=== PATIENT | female | born 1940 | race Caucasian/White ===

== ENCOUNTER → 2017-06-28 | Outpatient (CLI) | payer OTHER, MEDICARE ==
[~2017-06-28] MED LIST: CHOL20005 PO; MULT-513 PO
--- NOTE | 2017-06-28 14:55 | MAMMOGRAPHY REPORT ---
BILATERAL DIGITAL SCREENING MAMMOGRAM WITH CAD: 06/28/2017 CLINICAL HISTORY: Routine screening. Patient has no complaints. TECHNIQUE: Bilateral CC and MLO views were obtained. Current study was also evaluated with a Compute r Aided Detection (CAD) system. COMPARISON: Comparison is made to exams dated: 06/24/2016 mammogram, 06/20/2015 mammogram, 05/30/2014 mammogram, 04/26/2013 mammogram, 04/21/2012 mammogram, and 04/20/2011 mammogram - [facility]. BREAST COMPOSITION: The tissue of both breasts is heterogeneously dense, which may obscure small mas ses. FINDINGS: There is a 9 mm focal asymmetry in the upper inner posterior left breast, for which additi onal spot compression tomosynthesis views and possible ultrasound are recommended. No other suspicious mass, architectural distortion or cluster of microcalcifications is seen bilatera lly. IMPRESSION: ACR BI-RADS CATEGORY 0: INCOMPLETE EVALUATION: NEED ADDITIONAL IMAGING EVALUATION The 9 mm focal asymmetry in the upper inner left breast needs additional evaluation. The patient will be called to schedule an appointment. Approximately 10% of breast cancers are not detected with mammography. A negative mammographic report should not delay biopsy if a clinically suggestive mass is present. Bethany Meza M.D. ay/:06/28/2017 12:46:03 Certified Indoor Environmentalist: Radha RODRIGUEZ(R)(M), [facility] letter sent: Addl Imaging 0 BI-RADS Code: ACR BI-RADS Category 0: Incomplete Evaluation: Need Additional Imaging Evaluation
== END | disposition home or self-care (01) ==
LOC: C.MAMM 11:05
PROVIDERS: ATTEND Obstetrics & Gynecology
DX: Z12.31 Encounter for screening mammogram for malignant neoplasm of breast (principal); N64.89 Other specified disorders of breast

== ENCOUNTER → 2017-07-08 | Outpatient (CLI) | payer OTHER, MEDICARE ==
--- NOTE | 2017-07-08 14:53 | MAMMOGRAPHY REPORT ---
UNILATERAL LEFT DIGITAL DIAGNOSTIC MAMMOGRAM TOMOSYNTHESIS AND TARGETED LEFT ULTRASOUND: 07/08/2017 CLINICAL HISTORY: Callback from screening mammogram for left breast asymmetry. TECHNIQUE: Breast tomosynthesis in addition to standard 2D mammography was performed. Spot compress ion left CC and MLO 2-D and tomosynthesis images were obtained. COMPARISON: Comparison is made to exams dated: 06/28/2017 mammogram, 06/24/2016 mammogram, 5 mammogram, 05/30/2014 mammogram, 04/26/2013 mammogram, and 04/21/2012 mammogram - [facility]. BREAST COMPOSITION: The tissue of the left breast is heterogeneously dense, which may obscure small masses. FINDINGS: The previously described focal asymmetry in the left upper inner quadrant effaces to a base line appearance on the additional spot compression views, with appearance of this region similar to m joãole prior exams including the 2013, 2011, and 2008 exams. No suspicious mass or architectural di stortion is noted on the additional views. Targeted ultrasound was performed of the left upper inner quadrant at approximately 10 to 11:00 in th e region of the mammographic asymmetry. No suspicious masses or other suspicious sonographic abnorma lities are evident. No sonographic correlate for the mammographic asymmetry is seen. IMPRESSION: ACR BI-RADS CATEGORY 2: BENIGN, TARGETED ULTRASOUND ACR BI-RADS CATEGORY 2: BENIGN The left breast asymmetry effaces to a baseline appearance on the additional images, with no correspo nding suspicious sonographic abnormality evident. Findings are benign and likely represent normal fi broglandular tissue. There is no mammographic or targeted sonographic evidence of malignancy. A 1 ye ar screening mammogram is recommended. The patient has been verbally notified of the results. Approximately 10% of breast cancers are not detected with mammography. A negative mammographic report should not delay biopsy if a clinically suggestive mass is present. Zhanna Patel M.D. /:07/08/2017 11:45:00 [place] Hand: Radha RODRIGUEZ(Iris)(M), [facility] letter sent: Normal 1/2 BI-RADS Code: ACR BI-RADS Category 2: Benign Ultrasound BI-RADS: ACR BI-RADS Category 2: Benign
== END | disposition home or self-care (01) ==
LOC: C.MAMM 10:53
PROVIDERS: ATTEND Obstetrics & Gynecology
DX: N64.89 Other specified disorders of breast (principal)